=== PATIENT | male | born 1970 | race Caucasian/White ===

== ENCOUNTER 2020-03-17 21:50 | Emergency (ER) | payer OTHER ==
[2020-03-17] MEDS ORDERED: HYDROCODONE/ACETAMINOPHEN 5-325 MG TABLET PO ONE (22:27)
--- NOTE | 2020-03-17 22:33 | ER Document Report ---
ED Medical Screen (RME) - General Chief Complaint: Skin Problem Stated Complaint: RIGHT LEG INJURY Time Seen by Provider: 03/17/20 22:19 Mode of Arrival: Ambulatory Information source: Patient Notes: HPI; 49-year-old male presents to the emergency room with worsening right lower leg pain and swelling for the past week. States is had multiple falls. Has been taking Tylenol and ibuprofen without relief. He denies any fevers. Patient is a resident at [facility] for mental health issues. Currently on any antibiotics. PE: Alert and oriented x3. Lungs: Clear to auscultation without rales, rhonchi, wheezes. Heart: Regular rate rhythm without murmurs, rubs, gallops. Swelling with tenderness and warmth with erythema noted to the right leg from the knee to the ankle. There are multiple abrasions and sores that are scabbed over that are also warm and tender to palpation. There is no active discharge or draining noted. Positive right pedal pulse. I have greeted and performed a rapid initial assessment of this patient. A comprehensive ED assessment and evaluation of the patient, analysis of test results and completion of the medical decision making process will be conducted by additional ED providers. I have specifically instructed the patient or family members with the patient to immediately return to any nursing staff should anything change in the patient's condition or with their chief complaint. TRAVEL OUTSIDE OF THE [place] IN LAST 30 DAYS: No - Related Data Home Medications: pt has meds sheets w/meds Past Medical History - Social History Frequency of alcohol use: None Drug Abuse: None Physical Exam - Vital signs Vitals: Temp Pulse Resp BP Pulse Ox 98.1 F 89 14 138/66 H 98 03/17/20 22:14 03/17/20 22:14 03/17/20 22:14 03/17/20 22:14 03/17/20 22:14 Course - Vital Signs Vital signs: Temp Pulse Resp BP Pulse Ox 98.1 F 89 14 138/66 H 98 03/17/20 22:14 03/17/20 22:14 03/17/20 22:14 03/17/20 22:14 03/17/20 22:14
[2020-03-17 23:01] LABS: ABSOLUTE EOSINOPHILS # (AUTO) 0.1 10^3/uL (0.0-0.6); ABSOLUTE LYMPHOCYTES (AUTO) 1.3 10^3/uL (0.5-4.7); ABSOLUTE MONOCYTES (AUTO) 0.8 10^3/uL (0.1-1.4); ABSOLUTE NEUT (AUTO) 4.6 10^3/uL (1.7-8.2); BASOPHILS % (AUTO) 0.7 % (0-2); EOSINOPHILS % (AUTO) 1.8 % (0-6); HEMATOCRIT 33.1 % (37.9-51.0); HEMOGLOBIN 11.3 g/dL (13.5-17.0); MEAN CORPUSCULAR HEMOGLOBIN 28.8 pg (27.0-33.4); MEAN CORPUSCULAR VOLUME 85 fl (80-97); MONOCYTES % (AUTO) 12.3 % (3-13); PLATELET COUNT 308 10^3/uL (150-450); RED BLOOD COUNT 3.91 10^6/uL (4.35-5.55); RED CELL DISTRIBUTION WIDTH 24.6 % (11.5-14.0); SEGMENTED NEUTROPHILS % (AUTO) 66.2 % (42-78); TOTAL CELLS COUNTED % (AUTO) 100 %; WHITE BLOOD COUNT 6.9 10^3/uL (4.0-10.5)
--- NOTE | 2020-03-17 23:19 | RADIOLOGY REPORT (SQ) ---
EXAM DESCRIPTION: XR TIBIA FIBULA 2 VIEWS COMPLETED DATE/TME: 03/17/2020 22:26 CLINICAL HISTORY: 49 years, Male, injury COMPARISON: None. NUMBER OF VIEWS: 4 TECHNIQUE: 4 views right tibia fibula LIMITATIONS: None. FINDINGS: Electronic device projects over the ankle. As visualized no radiographic evidence for acute fracture or dislocation. The ankle mortise is intact. Soft tissues are grossly unremarkable IMPRESSION: No acute osseous abnormality copyright 2010 [employer]- All Rights Reserved
--- NOTE | 2020-03-17 23:19 | RADIOLOGY REPORT (SQ) ---
EXAM DESCRIPTION: XR KNEE 4 OR MORE VIEWS COMPLETED DATE/TME: 03/17/2020 22:26 CLINICAL HISTORY: 49 years, Male, injury COMPARISON: None. NUMBER OF VIEWS: 4 TECHNIQUE: 4 views right knee LIMITATIONS: None. FINDINGS: Negative for acute fracture or dislocation. Tricompartmental degenerative changes. No joint effusion IMPRESSION: No acute osseous abnormality copyright 2010 [email or web address]- All Rights Reserved
[2020-03-17 23:30] LABS: ALBUMIN 3.7 g/dL (3.5-5.0); ALKALINE PHOSPHATASE 70 U/L (38-126); ANION GAP 6 (5-19); ASPARTATE AMINO TRANSFERASE 30 U/L (17-59); BILIRUBIN,DIRECT 0.3 mg/dL (0.0-0.4); BILIRUBIN,TOTAL 0.6 mg/dL (0.2-1.3); BLOOD UREA NITROGEN 18 mg/dL (7-20); CALCIUM 9.2 mg/dL (8.4-10.2); CARBON DIOXIDE 29 mmol/L (22-30); CHLORIDE 104 mmol/L (98-107); GLUCOSE 98 mg/dL (75-110); POTASSIUM 4.8 mmol/L (3.6-5.0); TOTAL PROTEIN 6.3 g/dL (6.3-8.2)
[2020-03-17 23:43] LABS: ANISOCYTOSIS 3+
[2020-03-17 23:44] LABS: PLATELET COMMENT ADEQUATE
[2020-03-17 23:45] LABS: BURR CELLS SLIGHT; OVALOCYTES 1+
[2020-03-17 23:47] LABS: SCHISTOCYTES SLIGHT
[2020-03-17 23:49] LABS: POIKILOCYTOSIS 1+
[2020-03-17 23:52] LABS: C-REACTIVE PROTEIN < 5.0 mg/L (<10.0)
[2020-03-17 23:55] LABS: ERYTHROCYTE SEDIMENTATION RATE 24 mm/hr (0-15)
[2020-03-18] MEDS ORDERED: OXYCODONE HCL IR 5 MG TABLET PO ONE (02:52)
[2020-03-18] MEDS ORDERED: DIPH/PERTUSS(ACELL)/TETANUS VAC/PF 0.5 ML SYR (>=10YO) IM ONE (02:52)
--- NOTE | 2020-03-18 02:52 | ER Document Report ---
ED Extremity Problem, Lower - General Chief Complaint: Skin Problem Stated Complaint: RIGHT LEG INJURY Time Seen by Provider: 03/17/20 22:19 Mode of Arrival: Ambulatory Notes: Patient is a 49-year-old male who comes emergency department for chief complaint of right lower leg pain and swelling. Patient states that he fell in the shower and landed on both of his knees, he actually did have initial wrist pain and had x-rays of the hand/wrist which were normal, however he has had increasing swelling and bruising around the scabs over the kneecap and anterior proximal tibial area and down his calf and finally into his foot. Patient reports general pain but not severe pain in the leg, he denies fever/chills, nausea /vomiting, he denies any other complaints. Patient has been taking Tylenol and ibuprofen for pain. 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 Patient is not up-to-date on his tetanus. TRAVEL OUTSIDE OF THE [place] IN LAST 30 DAYS: No - Related Data Home Medications: pt has meds sheets w/meds Past Medical History - General Information source: Patient, Legal Guardian - Psychiatric facility staff - Social History Smoking Status: Never Smoker Frequency of alcohol use: None Drug Abuse: None Lives with: Family Family History: Reviewed & Not Pertinent Endocrine Medical History: Reports: Hx Diabetes Mellitus Type 2 - Immunizations Immunizations up to date: No Hx Diphtheria, Pertussis, Tetanus Vaccination: Yes Review of Systems - Review of Systems Constitutional: No symptoms reported EENT: No symptoms reported Cardiovascular: No symptoms reported Respiratory: No symptoms reported Gastrointestinal: No symptoms reported Genitourinary: No symptoms reported Male Genitourinary: No symptoms reported Musculoskeletal: See HPI Skin: See HPI Hematologic/Lymphatic: No symptoms reported Neurological/Psychological: No symptoms reported Physical Exam - Vital signs Vitals: Temp Pulse Resp BP Pulse Ox 98.1 F 89 14 138/66 H 98 03/17/20 22:14 03/17/20 22:14 03/17/20 22:14 03/17/20 22:14 03/17/20 22:14 - Notes Notes: GENERAL: Alert, interacts well. No acute distress. Talkative and well-appearing HEAD: Normocephalic, atraumatic. EYES: Pupils equal, round, and reactive to light. Extraocular movements intact. ENT: Oral mucosa moist, tongue midline. Oropharynx unremarkable. Airway patent. LUNGS: Clear to auscultation bilaterally, no wheezes, rales, or rhonchi. No respiratory distress. Non-tender chest wall. HEART: Regular rate and rhythm. No murmur ABDOMEN: Soft, non-tender. Non-distended. EXTREMITIES: Unremarkable upper extremity exam. Small abrasions over the left knee anteriorly, otherwise unremarkable. Right knee with larger healed scabs over the anterior knee and over the proximal tibial area anteriorly. There is significant hematoma over the right lateral aspect of the leg extending from the calf downwards towards the leg and even to the foot. However there is no pitting edema. Normal cap refill and sensation, normal distal neurovascular exam. There is some mild erythema and warmth around the scabs but there is no overt erythema or streaking, no severe tenderness, no purulent drainage, no bleeding, no other concerning findings. BACK: no cervical, thoracic, lumbar midline tenderness. No saddle anesthesia, normal distal neurovascular exam. Moves all extremities in full range of motion. NEUROLOGICAL: Alert and oriented x3. Normal speech. Cranial nerves II through XII grossly intact. Strength 5/5 in all extremities. PSYCH: Normal affect, normal mood. SKIN: Warm, dry, normal turgor. No rashes or lesions noted. Course - Re-evaluation Re-evalutation: Patient has abrasions over the right anterior knee and right proximal tibia, he has significant hematoma along the side of the right leg and calf extending down to the ankle and slightly over to the foot as well. However there is no severe tenderness, there is no overt erythema, there is only mild warmth around the scabs, no overt infection is noted, no evidence of necrotizing fasciitis. Patient can ambulate as well without difficulty. Normal distal neurovascular exam. I did review x-rays, these show no acute findings, I did review laboratory work-up. No leukocytosis, CRP is negative, no fever, unremarkable vital signs, unremarkable chemistry. ESR is only mildly elevated which is nonspecific. Overall I suspect patient has a significant hematoma, patient covered with antibiotics because of borderline warmth and erythema around the scabs. I recommended that they remove the ankle bracelet because the foot has started to have some swelling from the hematoma, staff states they will do this. I discussed monitoring, strict return precautions. They state understanding and agreement. Stable and well-appearing at time of discharge. - Vital Signs Vital signs: Temp Pulse Resp BP Pulse Ox 98.6 F 77 18 138/77 H 97 03/18/20 03:15 03/18/20 03:15 03/18/20 03:15 03/18/20 03:15 03/18/20 03:15 - Laboratory Result Diagrams: 03/17/20 22:43 03/17/20 22:43 Laboratory results interpreted by me: 03/17/20 22:43 RBC 3.91 L Hgb 11.3 L Hct 33.1 L RDW 24.6 H ESR 24 H Discharge - Discharge Clinical Impression: Right leg pain, Right leg swelling, Hematoma, Skin abrasion Condition: Stable Disposition: HOME, SELF-CARE Additional Instructions: The x-rays do not show fractures, the blood work does not show any concerning findings. The evaluation is consistent with hematoma from the injury which has extended down to the foot. This will slowly resolve with time. Because of borderline appearance around the scabs we are covering you with an antibiotic but there is no overt infection noted at this time. I do recommend that you remove the ankle monitor from the right foot because the swelling in the right foot may significantly worsen if you do not. I also recommend that you apply warm compresses to the leg to help the hematoma resolve and you keep the leg elevated as much as possible. Follow-up with primary care. Return for any worsening symptoms including spreading redness, severe worsening pain or swelling, discolored drainage, fever/chills, or any other concerning or worsening symptoms. Prescriptions: Cephalexin Monohydrate [Keflex 500 mg Capsule] 500 mg PO QID #28 capsule
[2020-03-18 03:17] VITALS: BP 138/77
== END 2020-03-18 03:15 | disposition home or self-care (01) ==
LOC: ER 21:50
DX: S80.11XA Contusion of right lower leg, initial encounter (principal); S90.01XA Contusion of right ankle, initial encounter; S90.31XA Contusion of right foot, initial encounter; S80.211A Abrasion, right knee, initial encounter; S80.811A Abrasion, right lower leg, initial encounter; W18.2XXA Fall in (into) shower or empty bathtub, initial encounter; E11.9 Type 2 diabetes mellitus without complications; Z79.899 Other long term (current) drug therapy; Z23 Encounter for immunization
CPT/HCPCS: 36415; 80053; 83605; 85025; 85652; 86140; 87040; 90471; 90715; 99284